=== PATIENT | female | born 1980 | race Caucasian/White ===

== ENCOUNTER 2016-05-03 03:52 | Emergency (ER) | payer MEDICAID ==
--- NOTE | 2016-05-03 04:17 | EDPHY ---
H & P Stated Complaint: adb pain, vomiting HPI/ROS: HPI CHIEF COMPLAINT: Nausea, vomiting, abdominal pain, HISTORY OF PRESENT ILLNESS: This patient very pleasant 35-year-old female she is currently 16 weeks does not have any significant medical history except for asthma migraine headaches, and has had morning sickness which she takes Reglan for she presents emergency room at 430 in the morning for initially abdominal pain that she describes as sharp stabbing in nature sudden onset epigastric region and then radiated to her right upper quadrant. This woke her from sleep at 1:30 a.m. it was persistent for 1-2 hours with associated nausea vomiting. She states since then the pain is now greatly subsided and she is feeling comfortable however does endorse nausea. She tells me she normally does vomit once or twice a night around 8:30 p.m. she did have vomiting after dinner tonight around 830 felt better. She denies any vaginal discharge, vaginal bleeding, urinary symptoms, back pain. She is not having any cramping in her lower abdomen she denies any lower abdominal pain. She does tell me she did have her gallbladder removed Past Medical History: Asthma, migraine headaches, nausea vomiting in early Past Surgical History: Cholecystectomy Social History: denies use of drugs alcohol tobacco products Family History: Noncontributory ROS REVIEW OF SYSTEMS: A comprehensive 10 point review of systems is otherwise negative aside from elements mentioned in the history of present illness. Exam Constitutional triage nursing summary reviewed, vital signs reviewed, awake/ alert. Eyes normal conjunctivae and sclera, EOMI, PERRLA. HENT normal inspection, atraumatic, moist mucus membranes, no epistaxis, neck supple/ no meningismus, no raccoon eyes. Respiratory clear to auscultation bilaterally, normal breath sounds, no respiratory distress, no wheezing. Cardiovascular rate normal, regular rhythm, no murmur, no edema, distal pulses normal. Gastrointestinal specifically is no right lower quadrant pain, no right upper quadrant pain no epigastric pain on exam, soft, non-tender, no rebound, no guarding, normal bowel sounds, no distension, no pulsatile mass. Genitourinary no CVA tenderness. Musculoskeletal no midline vertebral tenderness, full range of motion, no calf swelling, no tenderness of extremities, no meningismus, good pulses, neurovascularly intact. Skin pink, warm, & dry, no rash, skin atraumatic. Neurologic awake, alert and oriented x 3, AAOx3, moves all 4 extremities equally, motor intact, sensory intact, CN II-XII intact, normal cerebellar, normal vision, normal speech. Psychiatric normal mood/affect. Heme/Lymph/Immune no lymphadenopathy. Differential diagnosis includes but is not limited to and in no particular order : Gastritis, peptic ulcer disease, esophagitis, esophageal spasm, pancreatitis , Bowel obstruction, appendicitis, gallbladder disease, diverticulitis, colitis , enteritis, perforated viscus, gastritis, GERD, esophagitis, urinary tract infection, pyelonephritis, kidney stones, abdominal pain in Medical Decision Making: This patient had an IV established patient given fluid bolus and Zofran for nausea will check abdominal blood work including CBC , electrolytes LFTs and lipase she will have an ultrasound of her abdomen and ultrasound of . She is nontender at this time on exam and appears well no vomiting. Re-evaluation: Ultrasound of the abdomen complete The results of the study are negative for anything acute normal appearing ultrasound status post cholecystectomy I discussed the results of this study with the radiologist Dr. Reyes Ultrasound of the OB. The results of the study are negative for anything acute normal appearing fetus, low lying placenta, no evidence of placenta previa, amniotic fluid index is slightly low. I discussed the results of this study with the radiologist Dr. Reyes Source: Patient - Personal History LMP (Females 10-55): Current Tetanus Diphtheria and Acellular Pertussis (TDAP): Yes - Medical/Surgical History Hx Asthma: Yes Hx Chronic Respiratory Disease: No Hx Diabetes: No Hx Cardiac Disease: No Hx Renal Disease: No Hx Cirrhosis: No Hx Alcoholism: No Hx HIV/AIDS: No Hx Splenectomy or Spleen Trauma: No Other PMH: asthma, [facility]raines[facility] - Social History Smoking Status: Never smoked Constitutional: Initial Vital Signs Temperature (C) 37.1 C 05/03/16 03:57 Heart Rate 110 H 05/03/16 03:57 Respiratory Rate 20 05/03/16 03:57 Blood Pressure 111/74 05/03/16 03:57 O2 Sat (%) 96 05/03/16 03:57 O2 Delivery Mode Room Air Allergies/Adverse Reactions: aspirin Allergy (Verified 05/03/16 03:56) Home Medications: Medication Instructions Recorded Amitriptyline HCl 05/03/16 05/03/16 Reglan 05/03/16 Zyrtec 05/03/16 Medical Decision Making - Data Points Laboratory Results: Laboratory Results 05/03/16 04:14 05/03/16 04:14 05/03/16 05/03/16 05:05 04:14 WBC 12.03 H 10^3/uL (3.80-9.50) RBC 4.13 L 10^6/uL (4.18-5.33) Hgb 12.1 L g/dL (12.6-16.3) Hct 35.2 L % (38.0-47.0) MCV 85.2 fL (81.5-99.8) MCH 29.3 pg (27.9-34.1) MCHC 34.4 g/dL (32.4-36.7) RDW 12.6 % (11.5-15.2) Plt Count 346 10^3/uL (150-400) MPV 9.2 fL (8.7-11.7) Neut % (Auto) 85.7 H % (39.3-74.2) Lymph % (Auto) 9.5 L % (15.0-45.0) [place] % (Auto) 3.5 L % (4.5-13.0) Eos % (Auto) 0.5 L % (0.6-7.6) Baso % (Auto) 0.2 L % (0.3-1.7) Nucleat RBC Rel Count 0.0 % (0.0-0.2) Absolute Neuts (auto) 10.32 H 10^3/uL (1.70-6.50) Absolute Lymphs (auto) 1.14 10^3/uL (1.00-3.00) Absolute Monos (auto) 0.42 10^3/uL (0.30-0.80) Absolute Eos (auto) 0.06 10^3/uL (0.03-0.40) Absolute Basos (auto) 0.02 10^3/uL (0.02-0.10) Absolute Nucleated RBC 0.00 10^3/uL (0-0.01) Immature Gran % 0.6 % (0.0-1.1) Immature Gran # 0.07 10^3/uL (0.00-0.10) Sodium 135 mEq/L (134-144) Potassium 4.1 mEq/L (3.5-5.2) Chloride 104 mEq/L (97-110) Carbon Dioxide 21 L mEq/l (22-31) Anion Gap 10 mEq/L (8-16) BUN 9 mg/dL (7-23) Creatinine 0.6 mg/dL (0.6-1.0) Estimated GFR > 60 Glucose 93 mg/dL (70-100) Calcium 9.1 mg/dL (8.5-10.4) Total Bilirubin 0.9 mg/dL (0.1-1.4) Conjugated Bilirubin 0.3 mg/dL (0.0-0.5) Unconjugated Bilirubin 0.6 mg/dL (0.0-1.1) AST 22 IU/L (14-46) ALT 26 IU/L (9-52) Alkaline Phosphatase 76 IU/L (38-126) Total Protein 6.9 g/dL (6.3-8.2) Albumin 3.7 g/dL (3.5-5.0) Lipase 145.0 IU/L (23-300) Urine Color PALE YELLOW Urine Appearance CLEAR Urine pH 7.0 (5.0-7.5) Ur Specific [place] 1.004 (1.002-1.030) Urine Protein NEGATIVE (NEGATIVE) Urine Ketones NEGATIVE (NEGATIVE) Urine Blood NEGATIVE (NEGATIVE) Urine Nitrate NEGATIVE (NEGATIVE) Urine Bilirubin NEGATIVE (NEGATIVE) Urine Urobilinogen NEGATIVE EU (0.2-1.0) Ur Leukocyte Esterase NEGATIVE (NEGATIVE) Ur Culture Indicated? NOT INDICATED (NI) Urine Glucose NEGATIVE (NEGATIVE) Medications Given: Discontinued Medications Sodium Chloride (Ns) 1,000 mls @ 0 mls/hr IV ONCE ONE PRN Reason: Wide Open Stop: 05/03/16 04:21 Last Admin: 05/03/16 04:23 Dose: 1,000 mls Sodium Chloride (Ns) 1,000 mls @ 0 mls/hr IV ONCE ONE PRN Reason: Wide Open Stop: 05/03/16 04:24 Last Admin: 05/03/16 04:41 Dose: 1,000 mls Ondansetron HCl (Zofran) 4 mg IVP EDNOW ONE Stop: 05/03/16 04:21 Last Admin: 01/17/17 04:22 Dose: 4 mg Departure - Departure Disposition: Home, Routine, Self-Care Clinical Impression: Abdominal pain Qualifiers: Abdominal location: right upper quadrant Qualifier Code: (R10.11) Right upper quadrant pain Condition: Good Instructions: Abdominal Pain (ED) Additional Instructions: 1. Stay well-hydrated drink lots of fluids. 2. return immediately to the emergency room if develops worsening abdominal pain including lower abdominal pain. 3. return emergency room if you develop worsening abdominal pain fever or vomiting. Referrals: Duane Noble MD [Primary Care Provider] - As per Instructions
[2016-05-03] MEDS ORDERED: ONDANSETRON 4 MG/2 ML VIAL ONE (04:18)
[2016-05-03] MEDS ORDERED: ONDANSETRON 4 MG/2 ML VIAL IVP ONE (04:20)
[2016-05-03] MEDS ORDERED: NS 1,000 ML IV ONE ×2 (04:20→04:23)
[2016-05-03 04:29] LABS: % IMMATURE GRANULYOCYTES 0.6 % (0.0-1.1); ABSOLUTE IMMATURE GRANULOCYTES 0.07 10^3/uL (0.00-0.10); ADD DIFF? NO; ADD MORPH? NO; ADD SCAN? NO; ATYPICAL LYMPHOCYTE FLAG 0 (0-99); FRAGMENT RBC FLAG 0 (0-99); HEMATOCRIT 35.2 % (38.0-47.0); HEMOGLOBIN 12.1 g/dL (12.6-16.3); LEFT SHIFT FLG 0 (0-99); LIPEMIA HEMOLYSIS FLAG 90 (0-99); MEAN CELL HEMOGLOBIN 29.3 pg (27.9-34.1); MEAN CELL HEMOGLOBIN CONCENTR. 34.4 g/dL (32.4-36.7); MEAN CELL VOLUME 85.2 fL (81.5-99.8); MEAN PLATELET VOLUME 9.2 fL (8.7-11.7); PLATELET CLUMPS FLAG 0 (0-99); PLATELET COUNT 346 10^3/uL (150-400); RED BLOOD CELL COUNT 4.13 10^6/uL (4.18-5.33); RED CELL DISTRIBUTION WIDTH 12.6 % (11.5-15.2)
[2016-05-03 04:32] LABS: ALANINE AMINOTRANSFERASE 26 IU/L (9-52); ALBUMIN 3.7 g/dL (3.5-5.0); ALKALINE PHOSPHATASE 76 IU/L (38-126); ANION GAP 10 mEq/L (8-16); ASPARTATE AMINOTRANSFERASE 22 IU/L (14-46); BILIRUBIN,TOTAL 0.9 mg/dL (0.1-1.4); BILIRUBIN-CONJUGATED 0.3 mg/dL (0.0-0.5); BILIRUBIN-UNCONJUGATED 0.6 mg/dL (0.0-1.1); CALCIUM 9.1 mg/dL (8.5-10.4); CARBON DIOXIDE 21 mEq/l (22-31); CHLORIDE 104 mEq/L (97-110); CREATININE 0.6 mg/dL (0.6-1.0); GLOMERULAR FILTRATION RATE > 60; GLUCOSE 93 mg/dL (70-100); POTASSIUM 4.1 mEq/L (3.5-5.2); SODIUM 135 mEq/L (134-144); TOTAL PROTEIN 6.9 g/dL (6.3-8.2)
[2016-05-03 05:55] LABS: COLOR PALE YELLOW; LEUKOCYTE ESTERASE,URINE NEGATIVE (NEGATIVE); NITRITE,URINE NEGATIVE (NEGATIVE)
[2016-05-03] MEDS ORDERED: METOCLOPRAMIDE 10 MG/2 ML VIAL ONE (06:14)
[2016-05-03 06:37] VITALS: BP 105/71; PULSE 101; RESP 18; TEMP 97.7; O2SAT 99
--- NOTE | 2016-05-03 08:30 | US ---
OB Sonogram, Second Trimester > 14 Weeks History: Abdominal pain, . Comparison: None. Findings: There is a single viable intrauterine gestation in vertex presentation. The placenta is anterior and low lying. The low margin of the placenta is about 7 mm above the internal os. The cervix is closed measuring 3.8 cm transabdominally. heart rate is 138 beats per minute. heart is four chambered. Fluid is identified in the stomach and urinary bladder. No abnormality identified in the renal region. [place]-rump length = 103 mm = 16 weeks 1 day. MARIA GUADALUPE = 8.9 cm = low normal. Maximum amniotic fluid pocket = 2.4 cm = low normal. TIKA by ultrasound = 7-3-17. Impression: 1. Single viable intrauterine gestation. Size consistent with dates. 2. Low-lying placenta. Follow up is recommended to assess for superior migration.l 3. Amniotic fluid low normal. This can be followed as well. Results discussed with Dr. Mcbride at 6:10 a.m. Final results are concordant with the initial interpretation. POS99 MTDD
--- NOTE | 2016-05-03 08:33 | US ---
Abdominal Sonogram History: Epigastric pain, patient, post cholecystectomy. Findings: The liver, pancreas, common bile duct, spleen, and kidneys look normal. There is no free fluid. The gallbladder has been surgically removed. The visualized inferior vena cava and abdominal aorta are normal. Impression: Normal post cholecystectomy abdominal sonogram. Final results are concordant with the initial interpretation. Results called to Dr. Mcbride at 6:10 a.m. POS99 MTDD
== END 2016-05-03 06:20 | disposition home or self-care (01) ==
DX: O26.892 Other specified pregnancy related conditions, second trimester (principal); R10.11 Right upper quadrant pain; J45.909 Unspecified asthma, uncomplicated; Z3A.16 16 weeks gestation of pregnancy; Z90.49 Acquired absence of other specified parts of digestive tract
CPT/HCPCS: 96374; J2405; J2765

== ENCOUNTER → 2016-06-03 | Outpatient (CLI) | payer MEDICAID | LOC: FIMAGING 09:25 | PROVIDERS: ATTEND Midwife | DX: O44.42 Low lying placenta NOS or without hemorrhage, second trimester (principal); Z3A.20 20 weeks gestation of pregnancy ==

== ENCOUNTER → 2016-08-15 | Outpatient (CLI) | payer MEDICAID | LOC: FIMAGING 09:17 | PROVIDERS: ATTEND Midwife | DX: O09.523 Supervision of elderly multigravida, third trimester (principal); O36.8931 Maternal care for other specified fetal problems, third trimester, fetus 1; Z3A.31 31 weeks gestation of pregnancy ==

== ENCOUNTER → 2016-09-13 | Outpatient (CLI) | payer MEDICAID | LOC: FIMAGING 09:51 | PROVIDERS: ATTEND Midwife | DX: O09.523 Supervision of elderly multigravida, third trimester (principal); O41.8X30 Other specified disorders of amniotic fluid and membranes, third trimester, not applicable or unspecified; Z3A.35 35 weeks gestation of pregnancy ==

== ENCOUNTER 2016-10-06 13:46 | Inpatient (IN) | payer MEDICAID ==
[2016-10-06] MEDS ORDERED: LR 1,000 ML IV PRN (15:23)
[2016-10-06] MEDS ORDERED: OLIVE OIL 118 ML BTL MISC PRN (15:23)
[2016-10-06] MEDS ORDERED: OXYTOCIN/RINGERS LACTATE 1,000 ML IV PRN (15:23)
[2016-10-06] MEDS ORDERED: TERBUTALINE SULFATE 1 MG/ML VIAL IV PRN (15:23)
[2016-10-06] MEDS ORDERED: EPSOM SALT 454 GM TP PRN (15:23)
[2016-10-06] MEDS ORDERED: LR 500 ML IV PRN (15:25)
[2016-10-06] MEDS ORDERED: OXYTOCIN/RINGERS LACTATE 500 ML IV SCH (15:30)
[2016-10-06] MEDS ORDERED: LIDOCAINE 1% 2 ML INJ ONE (16:29)
[2016-10-06 16:55] LABS: % IMMATURE GRANULYOCYTES 1.4 % (0.0-1.1); ABSOLUTE IMMATURE GRANULOCYTES 0.15 10^3/uL (0.00-0.10); ADD DIFF? NO; ADD MORPH? NO; ADD SCAN? NO; ATYPICAL LYMPHOCYTE FLAG 0 (0-99); FRAGMENT RBC FLAG 0 (0-99); HEMATOCRIT 34.1 % (38.0-47.0); HEMOGLOBIN 11.6 g/dL (12.6-16.3); LEFT SHIFT FLG 10 (0-99); LIPEMIA HEMOLYSIS FLAG 90 (0-99); MEAN CELL HEMOGLOBIN 30.3 pg (27.9-34.1); MEAN PLATELET VOLUME 10.1 fL (8.7-11.7); PLATELET CLUMPS FLAG 0 (0-99); PLATELET COUNT 276 10^3/uL (150-400); RED BLOOD CELL COUNT 3.83 10^6/uL (4.18-5.33); RED CELL DISTRIBUTION WIDTH 14.5 % (11.5-15.2)
--- NOTE | 2016-10-06 17:41 | PDGENHP ---
History and Physical - Chief Complaint 35 y.o. at 38 3/7 weeks with +PROM - History of Present Illness 35 y.o. female presents at 38 3/7 weeks with PROM History Information - Allergies/Home Medication List Allergies/Adverse Reactions: aspirin Allergy (Verified 05/03/16 03:56) Home Medications: Amitriptyline HCl 05/03/16 [Last Taken Unknown] 05/03/16 [Last Taken 10/06/16 07:00 1] Reglan 05/03/16 [Last Taken Unknown] Zyrtec 05/03/16 [Last Taken Unknown] I have personally reviewed and updated: family history, medical history, social history, surgical history - Past Medical History asthma Additional medical history: migraine headaches, allergies - Surgical History Reports: cholecystectomy Additional surgical history: lymph node biopsy - Family History Positive for: hypertension Additional family history: depression - Social History Smoking Status: Never smoked Alcohol Use: None Drug Use: None Review of Systems ROS: 10pt was reviewed & negative except for what was stated in HPI & below Constitutional: Reports: no symptoms EENMT: Reports: no symptoms Cardiac: Reports: no symptoms Respiratory: Reports: no symptoms Gastrointestinal: Reports: no symptoms Genitourinary: Reports: no symptoms Muscolosketal: Reports: no symptoms Skin: Reports: no symptoms Neurological: Reports: no symptoms Hematologic/Lymphatic: Reports: no symptoms Immunologic/Allergy: Reports: no symptoms Physical Exam Constitutional: no apparent distress Eyes: PERRL Ears, Nose, Mouth, Throat: moist mucous membranes Cardiovascular: regular rate and rhythym, no murmur, rub, or gallop Respiratory: no respiratory distress, clear to auscultation Gastrointestinal: soft, non-tender abdomen, no palpable masses Genitourinary: no bladder fullness Skin: warm, normal color Musculoskeletal: full muscle strength, no muscle tenderness Neurologic: AAOx3 Psychiatric: interacting appropriately Lymph, Heme, Immunologic: no cervical LAD Lab Data & Imaging Review 10/06/16 16:43 WBC 10.72 10^3/uL (3.80-9.50) H 10/06/16 16:43 RBC 3.83 10^6/uL (4.18-5.33) L 10/06/16 16:43 Hgb 11.6 g/dL (12.6-16.3) L 10/06/16 16:43 Hct 34.1 % (38.0-47.0) L 10/06/16 16:43 MCV 89.0 fL (81.5-99.8) 10/06/16 16:43 MCH 30.3 pg (27.9-34.1) 10/06/16 16:43 MCHC 34.0 g/dL (32.4-36.7) 10/06/16 16:43 RDW 14.5 % (11.5-15.2) 10/06/16 16:43 Plt Count 276 10^3/uL (150-400) 10/06/16 16:43 MPV 10.1 fL (8.7-11.7) 10/06/16 16:43 Neut % (Auto) 71.4 % (39.3-74.2) 10/06/16 16:43 Lymph % (Auto) 19.4 % (15.0-45.0) 10/06/16 16:43 [place] % (Auto) 7.0 % (4.5-13.0) 10/06/16 16:43 Eos % (Auto) 0.6 % (0.6-7.6) 10/06/16 16:43 Baso % (Auto) 0.2 % (0.3-1.7) L 10/06/16 16:43 Nucleat RBC Rel Count 0.0 % (0.0-0.2) 10/06/16 16:43 Absolute Neuts (auto) 7.66 10^3/uL (1.70-6.50) H 10/06/16 16:43 Absolute Lymphs (auto) 2.08 10^3/uL (1.00-3.00) 10/06/16 16:43 Absolute Monos (auto) 0.75 10^3/uL (0.30-0.80) 10/06/16 16:43 Absolute Eos (auto) 0.06 10^3/uL (0.03-0.40) 10/06/16 16:43 Absolute Basos (auto) 0.02 10^3/uL (0.02-0.10) 10/06/16 16:43 Absolute Nucleated RBC 0.00 10^3/uL (0-0.01) 10/06/16 16:43 Immature Gran % 1.4 % (0.0-1.1) H 10/06/16 16:43 Immature Gran # 0.15 10^3/uL (0.00-0.10) H 10/06/16 16:43 Patient ABO/Rh B POSITIVE 10/06/16 16:43 Antibody Screen NEGATIVE 10/06/16 16:43 Assessment & Plan Assessment: 35 y.o. at 38 3/7 weeks with PROM Hx significant for AMA, anemia and 2-V cord VSS- afebrile NST- reactive CAT I Not in active labor. Plan: Admit to L&D. VS and EFM per protocol Begin pitocin for augmentation of labor.
--- NOTE | 2016-10-06 18:47 | OBPROG ---
OBG Labor Progress Note Assessment/Plan: Assessment: 35 y/o at 38+3 weeks EGA admitted with PROM - Plan: 1) Labor - CX 1cm, continue with pitocin for induction. Will reevaluate when in active labor. 2) status reassuring w/ cat 1 FHT 3) Pain - no issues now 4) GBS neg 5) Hx bleeding disorder reported in past, seen by hematology, reports possible von willebrands disease; negative lab work up in 3rd trimester when reported to us; hematology rec'd no need for type and cross during labor; will plan for methergine x 4 days PP per usual protocol for possible von willebrands disease due to risk of PP bleeding. She agrees w/ this plan. 10/06/16 18:50 Subjective: Pt has no complaints, feeling mild contractions. Eventually plans ISABELLE. Objective: 10/06/16 16:43 Patient ABO/Rh B POSITIVE 10/06/16 16:43 - SVE Dilation (cm): 1 Effacement (%): 50 Station: -2 [place] Current Contraction Pattern: Irregular FHR (bpm): 140 FHR Pattern Variability: Moderate FHR Category: 1 Membranes: SROM Amniotic Fluid Color: Clear Oxytocin Orders Assessment - Pre-Induction/Augmentation Assessment Gestational Age: 38 week(s) and 3 day(s) ICD10 Worksheet Patient Problems: Problems Problem Status Onset Premature rupture of membranes (PROM) at term with onset of labor after 24 hours , antepartum Acute - ICD10 Problem Qualifiers (1) Premature rupture of membranes (PROM) at term with onset of labor after 24 hours, antepartum
[2016-10-06] MEDS ORDERED: AMMONIA AROMATIC 1 EACH AMP IH ONE (18:48)
[2016-10-06] MEDS ORDERED: MISOPROSTOL 200 MCG TAB ONE (18:48)
[2016-10-06] MEDS ORDERED: LIDOCAINE 1% 300 MG/30 ML SDV ONE (18:48)
[2016-10-06] MEDS ORDERED: OXYTOCIN 10 UNIT/ML VIAL ONE (18:48)
[2016-10-06] MEDS ORDERED: OLIVE OIL 118 ML BTL ONE (18:48)
[2016-10-06] MEDS ORDERED: TERBUTALINE SULFATE 1 MG/ML VIAL ONE (18:48)
[2016-10-06] MEDS ORDERED: fentaNYL 100 MCG/2 ML INJ IVP PRN (19:55)
[2016-10-06] MEDS ORDERED: ONDANSETRON 4 MG/2 ML VIAL IVP PRN (19:55)
[2016-10-06] MEDS ORDERED: fentaNYL 100 MCG/2 ML INJ ONE (20:00)
[2016-10-06] MEDS ORDERED: ONDANSETRON 4 MG/2 ML VIAL ONE (20:01)
[2016-10-06] MEDS ORDERED: fentaNYL 2MCG/ML/BUP 0.1% RTU 100 ML BAG EP ONE (21:44)
[2016-10-06] MEDS ORDERED: PHENYLEPHRINE HCL 100 MCG/ML SYR ONE (21:44)
[2016-10-06] MEDS ORDERED: BUPIVACAINE 0.25% 30 ML SDV ONE (21:44)
[2016-10-06] MEDS ORDERED: PHENYLEPHRINE HCL 100 MCG/ML SYR IVP PRN (23:19)
--- NOTE | 2016-10-06 23:19 | OBPROG ---
OBG Labor Progress Note Assessment/Plan: Assessment: 35 y/o at 38+3 weeks EGA admitted with PROM - Plan: 1) Labor - CX 4-5/80/0, progressing well, will continue with pitocin for induction. 2) status reassuring w/ cat 1 FHT 3) Pain - controlled well w/ ISABELLE 4) GBS neg 5) Hx possible von willebrand's disease: will plan for methergine x 4 days PP 10/06/16 22:30 Subjective: Pt comfortable with ISABELLE Objective: 10/06/16 16:43 Patient ABO/Rh B POSITIVE 10/06/16 16:43 - SVE Dilation (cm): 5 Effacement (%): 80 Station: 0 [place] Current Contraction Pattern: Regular FHR (bpm): 150 FHR Pattern Variability: Moderate FHR Category: 1 Membranes: SROM Amniotic Fluid Color: Clear Oxytocin Orders Assessment - Pre-Induction/Augmentation Assessment Gestational Age: 38 week(s) and 3 day(s) ICD10 Worksheet Patient Problems: Problems Problem Status Onset Premature rupture of membranes (PROM) at term with onset of labor after 24 hours , antepartum Acute - ICD10 Problem Qualifiers (1) Premature rupture of membranes (PROM) at term with onset of labor after 24 hours, antepartum
--- NOTE | 2016-10-06 23:24 | PREANESOB ---
Obstetric Pre-Anesthesia Info - General Info Proposed Procedure: Labor and delivery with pitocin. : 1 Para: 0 WBD: 38 - Info Status: Full Term Monitors: External FHR Baseline (bpm): 140 FHR Pattern: Reassuring - Labor Status Cervical Dilation per last OB SVE: 1 Station per last OB SVE: 0 Rupture of Membranes Time: 06:22 Pitocin: In Use Indications for Labor Analgesia: Induction of Labor, Pain Control Labor Epidural: Proposed (SROM.) Anesthesia ROS: SROM. Mild asthma. Allergies/Adverse Reactions: Allergy/AdvReac Type Severity Reaction Status Date / Time aspirin Allergy Verified 05/03/16 03:56 Home Medications: Medication Instructions Recorded Amitriptyline HCl 05/03/16 05/03/16 Reglan 05/03/16 Zyrtec 05/03/16 Visit Medications: Generic Name Dose Route Start Last Admin Trade Name Freq PRN Reason Stop Dose Admin Lactated Ringer's 1,000 mls @ 0 mls/hr 10/06/16 15:23 10/06/16 17:10 Lr IV 04/04/17 15:22 1,000 mls PRN PRN Administration SEE PROTOCOL CONDITIONS Protocol Per Protocol Oxytocin/Lactated Ringer's 1,000 mls @ 150 mls/hr 10/06/16 15:23 Pitocin 20 Units/Lr (Premix) IV PRN PRN Post- bleeding Lactated Ringer's 500 mls @ 500 mls/hr 10/06/16 15:25 Lr IV PRN PRN Maternal Hypotension Oxytocin/Lactated Ringer's 500 mls @ 0 mls/hr 10/06/16 15:30 10/06/16 17:09 Pitocin 30 Units/Lr (Premix) IV 04/04/17 15:29 500 mls CONT DARREL Administration Protocol Per Protocol Ibuprofen 600 mg 10/06/16 15:23 Motrin PO 04/04/17 15:22 Q6HRS PRN post , inflammation Magnesium Sulfate 454 gm 10/06/16 15:23 Epsom Salt TP 04/04/17 15:22 PRN PRN perineal discomfort [place] Oil 118 ml 10/06/16 15:23 Sweet Oil MISC 04/04/17 15:22 ONCE PRN preneal massage Ondansetron HCl 4 mg 10/06/16 19:55 Zofran IVP 04/04/17 19:54 Q4 PRN Nausea/Vomiting, Can't Take PO Terbutaline Sulfate 0.25 mg 10/06/16 15:23 Brethine IV 04/04/17 15:22 ONCE PRN Tachysystole Discontinued Medications Generic Name Dose Route Start Last Admin Trade Name Freq PRN Reason Stop Dose Admin Ammonia (Aromatic Spirit) Confirm 10/06/16 18:48 Ammonia Aromatic Administered 10/06/16 18:49 Dose 1 each IH .STK-MED ONE Bupivacaine HCl Confirm 10/06/16 21:44 Sensorcaine 0.25% Sdv Administered 10/06/16 21:45 Dose 30 ml .ROUTE .STK-MED ONE Ephedrine Sulfate Confirm 10/06/16 18:48 Ephedrine Sulfate Administered 10/06/16 18:49 Dose 50 mg .ROUTE .STK-MED ONE Fentanyl 50 - 100 mcg 10/06/16 19:55 Sublimaze IVP 10/06/16 20:26 Q30M PRN Pain, Severe Unable to Take PO Fentanyl Confirm 10/06/16 20:00 Sublimaze Administered 10/06/16 20:01 Dose 100 mcg .ROUTE .STK-MED ONE Fentanyl/Bupivacaine HCl Confirm 10/06/16 21:44 Fentanyl/Bupivacaine/Ns 2 Mcg/Ml 0.1% (Premix Administered 10/06/16 21:45 Dose 100 ml EP .STK-MED ONE Lidocaine HCl Confirm 10/06/16 16:29 Lidocaine Hcl 1% Administered 10/06/16 16:30 Dose 2 ml .ROUTE .STK-MED ONE Lidocaine HCl Confirm 10/06/16 18:48 Lidocaine Hcl 1% Administered 10/06/16 18:49 Dose 300 mg .ROUTE .STK-MED ONE Misoprostol Confirm 10/06/16 18:48 Cytotec Administered 10/06/16 18:49 Dose 800 mcg .ROUTE .STK-MED ONE [place] Oil Confirm 10/06/16 18:48 Sweet Oil Administered 10/06/16 18:49 Dose 118 ml .ROUTE .STK-MED ONE Ondansetron HCl Confirm 10/06/16 20:01 Zofran Administered 10/06/16 20:02 Dose 4 mg .ROUTE .STK-MED ONE Oxytocin Confirm 10/06/16 18:48 Pitocin Administered 10/06/16 18:49 Dose 40 unit .ROUTE .STK-MED ONE Phenylephrine HCl Confirm 10/06/16 21:44 Neosynephrine Administered 10/06/16 21:45 Dose 1,000 mcg .ROUTE .STK-MED ONE Terbutaline Sulfate Confirm 10/06/16 18:48 Brethine Administered 10/06/16 18:49 Dose 1 mg .ROUTE .STK-MED ONE - Anesthesia History Response to Local Anesthetics: Normal Anesthesia & Operative History: No Prior Problems Family Anesthesia History: Negative - Social History Substance Use/Abuse: Denies - Focused Exam Blood Pressure: 139/71 Heart Rate: 82 Height/Weight (Nursing): Height 162.56 cm Weight 88.904 kg Physical Exam: Within normal limits. No wheezes. ASA Status: II Labs: 10/06/16 16:43 Patient ABO/Rh B POSITIVE 10/06/16 16:43 - Plan Anesthetic Plan: CSE Consent Signed and on Chart: Yes Patient/Guardian Understands and Agrees to Plan: Yes Urgent/Emergent Case: Yoselyn yoder completed preop but documented later for safe timely pt care
--- NOTE | 2016-10-06 23:26 | POSTANESTH ---
Post Anesthetic Evaluation Cardiovascular Status: Normal, Stable, Similar to Pre-Op Cond Respiratory Status: Normal, Stable, Similar to Pre-op Cond. Level of Consciousness/Mental Status: Can Participate in Eval, Alert and Oriented Pain Control: Adequate, Prn Tx Ordered Nausea/Vomiting Control: Adequate, Prn Tx Ordered Complications Possibly Related to Anesthesia: None Noted
[2016-10-06] MEDS ORDERED: LR 500 ML IV SCH (23:30)
[2016-10-06] MEDS ORDERED: fentaNYL 2MCG/ML/BUP 0.1% RTU 100 ML EP SCH (23:30)
--- NOTE | 2016-10-06 23:57 | OBPROG ---
OBG Labor Progress Note Assessment/Plan: Assessment: 35 y/o at 38+3 weeks EGA admitted with PROM - Plan: 1) Labor - 8cm, progressing well, will continue with pitocin as needed. I went to check patient, and the RN had just checked her as she put in her urbina. Progressing well. 2) status over all reassuring - a few variable decels occurred that I just noted, RN had not notified me yet, but she had made the appropriate interventions with resolution noted. Baby just now, as I was writing this note , had another severe variable to the 90's w/ frequent ctx q1 minute, so I advised turning down her pitocin from 10 to 5 mIU/min due to the hyperstimulation. Will continue to monitor. Over all, excellent moderate variability, so will continue w/ pitocin as needed. 3) Pain - controlled well w/ ISABELLE 4) GBS neg 5) Hx possible von willebrand's disease: will plan for methergine x 4 days PP 10/06/16 23:58 Subjective: Pt is feeling comfortable w/ ISABELLE Objective: 10/06/16 16:43 Patient ABO/Rh B POSITIVE 10/06/16 16:43 Temp Pulse Resp BP Pulse Ox 82 139/71 H 10/06/16 23:25 10/06/16 23:25 - SVE Dilation (cm): 8 Effacement (%): 90 Station: +1 [place] Current Contraction Pattern: Regular FHR (bpm): 140 FHR Pattern Variability: Moderate FHR Category: 2 (occasional early decels; two severe variable decels that resolved w/ position changes, O2 and IVF bolus (given by RN)) Membranes: SROM Amniotic Fluid Color: Clear Oxytocin Orders Assessment - Pre-Induction/Augmentation Assessment Gestational Age: 38 week(s) and 3 day(s) ICD10 Worksheet Patient Problems: Problems Problem Status Onset Premature rupture of membranes (PROM) at term with onset of labor after 24 hours , antepartum Acute - ICD10 Problem Qualifiers (1) Premature rupture of membranes (PROM) at term with onset of labor after 24 hours, antepartum
[2016-10-07] MEDS ORDERED: HYDROCODONE/APAP 5/325 TAB PO PRN (02:29)
[2016-10-07] MEDS ORDERED: SIMETHICONE 80 MG TAB CHEW PO PRN (02:29)
[2016-10-07] MEDS ORDERED: HYDROCORTISONE 0.5% CREAM TP PRN (02:29)
--- NOTE | 2016-10-07 02:29 | OBDEL ---
Info Type: Vaginal GBS+: No Indications for Delivery: SROM Vaginal Delivery - Labor and Delivery Onset of Contractions Date: 10/06/16 Onset of Contractions Time: 16:30 Onset of Contractions Type: Induced Rupture of Membranes Date: 10/06/16 Rupture of Membranes Time: 06:22 Rupture of Membranes Type: Spontaneous Amniotic Fluid Color: Clear Dilation Complete Date: 10/07/16 Dilation Complete Time: 00:51 Placenta Delivery Date: 10/07/16 Placenta Delivery Time: 02:06 Total Hours of Labor: 9 Laceration: 2nd Degree Repair: 2-0, Vicryl Vaginal Sponge Count Correct: Yes Vaginal Needle Count Correct: Yes Vaginal Sweep Performed: Yes EBL: 200 cc Delivery Events: None Delivery Comment: Pt pushed and quickly delivered with a right anterior compound hand, baby placed on maternal abdomen w/ excellent cry. Cord clamped after 2 minutes, cord blood obtained, placenta delivered easily and uterine tone was excellent. Cervix and vaginal escalera intact. Midline 2nd degree laceration repaired w/ a crown stitch and hemostatic, no immediate complications. - Medications Labor Augmentation/Induction Methods Used: Pitocin Labor Augmentation/Induction Indication: Other (Specify) (SROM at term) Data [place] Delivery Date: 10/07/16 Delivery Time: 02:00 TIKA: 10/17/16 Gestational Age: 38 week(s) and 4 day(s) Sex of Infant: Female Score (1 Min): 8 Score (5 Min): 9 ICD10 Worksheet Patient Problems: Problems Problem Status Onset Premature rupture of membranes (PROM) at term with onset of labor after 24 hours , antepartum Acute (spontaneous vaginal delivery) Acute - ICD10 Problem Qualifiers (1) Premature rupture of membranes (PROM) at term with onset of labor after 24 hours, antepartum (2) (spontaneous vaginal delivery)
[2016-10-07] MEDS: IBUPROFEN 600 MG TAB PO PRN ×3 (05:44→18:50)
[2016-10-07] MEDS: METHYLERGONOVINE MAL 0.2 MG TAB PO SCH ×6 (05:44→22:25)
--- NOTE | 2016-10-07 08:10 | OBPP ---
Progress Note Assessment/Plan: Assessment: 35 y.o. s/p after IOL for PROM at 38 3/7 weeks. Recovering well with good pain control Plan: Routine orders and care. consult PRN. 10/07/16 08:07 Subjective: Reports good pain control and minimal vaginal bleeding. well. Ambulating without vertigo. Eating and drinking well without nausea or vomiting. Appropriate mood with good support system. Objective: 10/06/16 16:43 Patient ABO/Rh B POSITIVE 10/06/16 16:43 Temp Pulse Resp BP Pulse Ox 37.2 C 86 18 120/76 97 10/07/16 05:32 10/07/16 05:32 10/07/16 05:32 10/07/16 05:32 10/07/16 05:32 Uterine Position/Fundal Height: Umbilicus -1 Uterine Tone: Firm Physical Exam - Physical Exam General Appearance: WD/WN, alert, no apparent distress EENT: normal ENT inspection Neck: non-tender, full range of motion, normal inspection Respiratory: lungs clear, normal breath sounds Cardiac/Chest: regular rate, rhythm Abdomen: non-tender, soft Extremities: normal range of motion, non-tender, normal inspection Back: Normal inspection Skin: normal color, warm/dry Neuro/Psych: alert, normal mood/affect, oriented x 3
[2016-10-07] MEDS: IRON POLYSAC/IRON HEME 28 MG TAB PO SCH (10:19)
[2016-10-07] MEDS: POLYETHYLENE GLYCOL 3350 17 GM PKT PO PRN (13:11)
[2016-10-07] MEDS: ACETAMINOPHEN 325 MG TAB PO PRN ×2 (17:21→21:03)
[2016-10-07] MEDS: DOCUSATE SODIUM 100 MG CAP PO PRN (20:07)
[2016-10-08] MEDS: IBUPROFEN 600 MG TAB PO PRN ×4 (00:51→18:46)
[2016-10-08] MEDS: ACETAMINOPHEN 325 MG TAB PO PRN ×4 (02:18→20:26)
[2016-10-08] MEDS: DOCUSATE SODIUM 100 MG CAP PO PRN ×2 (08:43→20:26)
[2016-10-08] MEDS: IRON POLYSAC/IRON HEME 28 MG TAB PO SCH (08:43)
[2016-10-08] MEDS: POLYETHYLENE GLYCOL 3350 17 GM PKT PO PRN (08:43)
--- NOTE | 2016-10-08 09:55 | OBPP ---
Progress Note Assessment/Plan: Assessment: 35 y.o. s/p after IOL for PROM at 38 3/7 weeks. Recovering well with good pain control. Feeling a little teary about milk supply. Plan: Routine orders and care. consult PRN. Requested additional medication for constipation. 10/07/16 08:07 10/08/16 09:54 10/08/16 09:54 Objective: 10/07/16 06:00 Patient ABO/Rh B POSITIVE 10/06/16 16:43 Temp Pulse Resp BP Pulse Ox 36.3 C 94 18 122/78 H 96 10/08/16 09:38 10/08/16 09:38 10/08/16 09:38 10/08/16 09:38 10/07/16 19:54 Uterine Position/Fundal Height: Umbilicus -1 Uterine Tone: Firm Physical Exam - Physical Exam General Appearance: WD/WN, alert, no apparent distress EENT: normal ENT inspection Neck: non-tender, full range of motion, normal inspection Respiratory: lungs clear, normal breath sounds Cardiac/Chest: normal peripheral pulses, regular rate, rhythm Abdomen: non-tender, soft Extremities: normal range of motion, non-tender, normal inspection Back: Normal inspection Skin: normal color, warm/dry Neuro/Psych: alert, normal mood/affect, oriented x 3
[2016-10-08] MEDS: PSYLLIUM METAMUCIL 1 PKT PO SCH (12:44)
[2016-10-09] MEDS: IBUPROFEN 600 MG TAB PO PRN ×2 (00:54→08:05)
[2016-10-09] MEDS: ACETAMINOPHEN 325 MG TAB PO PRN ×2 (05:29→12:10)
--- NOTE | 2016-10-09 09:03 | OBGCSDC ---
General Delivery Information - General Info : 1 Para: 1 Delivery Physician/CNM: Linn Bose Admission Date: 10/06/16 Labs: Patient ABO/Rh B POSITIVE 10/06/16 16:43 Hct 34.8 % (38.0-47.0) L 10/07/16 06:00 Vaginal - Diagnosis Labor: Induced Presentation at Delivery: Vertex Rupture of Membranes Type: Spontaneous Amniotic Fluid Color: Clear Laceration: 2nd Degree Repair: 2-0, Vicryl Delivery Events: None - Operations/Procedures L&D Analgesia/Anesthesia Type: Epidural - Delivery L&D Analgesia/Anesthesia Type: Epidural [facility] Delivery Date: 10/07/16 Delivery Time: 02:00 TIKA: 10/17/16 Gestational Age: 38 week(s) and 6 day(s) 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
[2016-10-09 09:20] VITALS: BP 115/80; PULSE 84; RESP 16; TEMP 97.1; O2SAT 96
[2016-10-09] MEDS: PSYLLIUM METAMUCIL 1 PKT PO SCH (12:10)
[2016-10-09] MEDS: IRON POLYSAC/IRON HEME 28 MG TAB PO SCH (12:10)
== END 2016-10-09 12:30 | disposition home or self-care (01) | DRG 775 ==
LOC: OBSVTOIN 13:46 → FLD 13:46 → FOB 10-07 05:12
PROVIDERS: ADMIT Obstetrics & Gynecology; ATTEND Obstetrics & Gynecology
DX: O42.02 Full-term premature rupture of membranes, onset of labor within 24 hours of rupture (principal); Z37.0 Single live birth; Z3A.38 38 weeks gestation of pregnancy; O70.1 Second degree perineal laceration during delivery
CPT/HCPCS: J2370; J2405; J2590; J3010; J3105